=== PATIENT | male | born 1970 | race Caucasian/White ===

== ENCOUNTER 2016-06-26 13:56 | Inpatient (IN) | payer MEDICARE, MEDICAID ==
--- NOTE | 2016-06-26 14:07 | ED Physician Chart ---
Chief Complaint/HPI - Patient Information Date Seen:: 06/26/16 Time Seen:: 14:00 Chief Complaint:: Coffee ground emesis. History of Present Illness:: Pt was brought in by ambulance from custodial because he had 2 episodes of coffee ground emesis reportedly. Pt has h/o cerebral palsy and is essentially nonverbal. H & P are limited because pt is unable to cooperate. Info is primarily from review of transfer documents. Allergies:: NKA Vitals:: see Nurse Note. Historian:: Medical Records (from transferring facility.) Family MD/PCP:: Dr. Goldberg LMP:: N/A Review:: Nurse's Note Reviewed, Transfer documents Reviewed Review of Systems - Review of Systems General/Constitutional: Other (Pt does not cooperate for ROS.) Past Medical History - Past Medical History Past Medical History: HTN, Seizures, Dementia, Other (h/o cerebral palsy with spastic quadraplegia.) Family History: Other (Pt does not cooperate to provide info on FHx.) Social History: Care Facility, Other (Pt does not cooperate to provide info on SHx.) Surgical History: other (Pt does not cooperate to provide info on Surgical Hx.) Psychiatricy History: Dementia Medication: Reviewed Family Medical History - Family Member Mother History Unknown: Yes Physical Exam - Physical Examination General/Constitutional: Awake, Well-developed, well-nourished, Alert, No distress, Non-toxic appearing Other Gen/Cons comments:: Breathes comfortably, responds to voice and tactile stimuli. Head: Atraumatic Eyes: Lids, conjuctiva normal, PERRL, EOMI Skin: Nl inspection, No rash, No skin lesions, No ecchymosis, Well hydrated, No lymphadenopathy ENMT: External ears, nose nl, Nasal exam nl, Oropharynx nl, Tonsils nl Neck: Nontender, Full ROM w/o pain, No JVD, No nuchal rigidity, No mass, No stridor Respiratory: Nl effort/Exclusion, Clear to Auscultation, No Wheeze/Rhonchi/Rales Cardio Vascular: RRR, No murmur, gallop, rubs, NL S1 S2 GI: No tenderness/rebounding/guarding, No organomegaly, No hernia, Normal BS's, Nondistended, No mass/bruits, No McBurney tenderness Other GI comments:: Soft Extremities: No edema Other Neuro/Psych comments:: Alert, spontaneous movements noticed in all 4 extremities. Pt does not cooperate for full neurological exam. Labs/Radiology/EKG Results - Lab Results Results: Laboratory Tests 06/26/16 06/26/16 06/26/16 14:35 14:35 14:35 WBC 20.5 H* RBC 5.99 H Hgb 17.5 H Hct 52.7 H MCV 87.9 MCH 29.2 MCHC Differential 33.2 RDW 12.0 Plt Count 272 MPV 8.9 Band Neutrophils % 5 Neutrophils (Manual) 90 H Lymphocytes 3 L Monocytes 2 Eosinophils 0 Basophils 0 Platelet Estimate ADEQUATE Platelet Morphology NORMAL RBC Morph Micro Appear NORMAL PT 10.7 INR 1.08 PTT (Actin FS) 19.0 L Sodium 138 Potassium 4.6 Chloride 100 Carbon Dioxide 30.8 Anion Gap 11.8 BUN 31 H Creatinine 0.9 Est GFR ( Amer) > 60.0 Est GFR (Non-Af Amer) > 60.0 BUN/Creatinine Ratio 34.4 Glucose 210 H Hemoglobin A1c % Calcium 10.0 Total Bilirubin 0.5 AST 23 ALT 25 Alkaline Phosphatase 116 H Total Protein 8.2 Albumin 4.3 Globulin 3.9 Albumin/Globulin Ratio 1.1 Urine Source Urine Color Urine Clarity Urine pH Ur Specific [place] Urine Protein Urine Glucose (UA) Urine Ketones Urine Blood Urine Nitrate Urine Bilirubin Urine Urobilinogen Ur Leukocyte Esterase Urine RBC Urine WBC Ur Epithelial Cells Urine Bacteria Blood Type Antibody Screen 06/26/16 06/26/16 06/26/16 14:35 14:35 15:15 WBC RBC Hgb Hct MCV MCH MCHC Differential RDW Plt Count MPV Band Neutrophils % Neutrophils (Manual) Lymphocytes Monocytes Eosinophils Basophils Platelet Estimate Platelet Morphology RBC Morph Micro Appear PT INR PTT (Actin FS) Sodium Potassium Chloride Carbon Dioxide Anion Gap BUN Creatinine Est GFR ( Amer) Est GFR (Non-Af Amer) BUN/Creatinine Ratio Glucose Hemoglobin A1c % 5.0 Calcium Total Bilirubin AST ALT Alkaline Phosphatase Total Protein Albumin Globulin Albumin/Globulin Ratio Urine Source CATH Urine Color JASWANT Urine Clarity CLOUDY Urine pH 6.0 Ur Specific [place] 1.030 Urine Protein >300 H Urine Glucose (UA) NEGATIVE Urine Ketones >=80 H Urine Blood NEGATIVE Urine Nitrate NEGATIVE Urine Bilirubin SMALL H Urine Urobilinogen 0.2 Ur Leukocyte Esterase TRACE H Urine RBC 0-2 H Urine WBC 2-5 H Ur Epithelial Cells NONE SEEN Urine Bacteria MANY Blood Type A NEGATIVE Antibody Screen NEGATIVE Lactic acid pending. - Radiology Results Results: PCXR: Based on my interpretation, surgical hardware in spinal region, poor inspiration. Increased markings at R lower lung field. Consider early infiltrative process. Official report is pending. ED Septic Shock - . Is Septic Shock (SBP<90, OR Lactate>4 mmol\L) present?: No Reassessment (Disposition) - Reassessment Reassessment:: 1650 Pt has been repeatedly evaluated. Attempts were made to insert NG tube without success as pt was unable to cooperate. Pt remains hemodynamically stable. No sign of active gastrointestinal bleeding. Remaining labs and chest X- ray just became available. Dr. Sanchez is to be contacted. 170 Case was discussed with Dr. Sanchez with relevant H & P, pertinent lab and radiological findings reviewed. Pt is to be admitted to [facility] under his care. Reassessment Condition:: Improved - Diagnosis Diagnosis:: Transient coffee ground emesis by hx, consider upper gastrointestinal bleeding, stable. Leukocytosis with probable early RLL pneumonia and bacteruria. HTN, stable. Hyperglycemia c/w diabetes mellitus, stable. - Patient Disposition Admitted to:: Med/Surg Admitting Medical Physician:: Erick Sanchez Time:: 17:10 Condition at Disposition:: Stable, Improved
[2016-06-26 14:50] LABS: HEMATOCRIT 52.7 % (39.0-49.0); HEMOGLOBIN 17.5 gm/dL (13.2-17.3); MEAN CELL VOLUME 87.9 fl (80-99); MEAN CORPUSCULAR HEMOGLOBIN 29.2 pg (26.0-30.0); MEAN CORPUSCULAR HGB CONC 33.2 pg (28.0-36.0); MEAN PLATELET VOLUME 8.9 fl; PLATELET COUNT 272 Th/cmm (150-400); RED BLOOD COUNT 5.99 Mil/cmm (4.30-5.70)
[2016-06-26 15:03] LABS: WHITE BLOOD COUNT 20.5 Th/cmm (4.8-10.8)
[2016-06-26 15:09] LABS: ALB/GLOB RATIO 1.1 (1.0-1.8); ALKALINE PHOSPHATASE 116 U/L (34-104); ANION GAP 11.8 (7.0-16.0); BILIRUBIN,TOTAL 0.5 mg/dL (0.3-1.0); BUN - UREA NITROGEN 31 mg/dL (7-25); BUN/CREATININE RATIO 34.4; CARBON DIOXIDE 30.8 mEq/L (21.0-31.0); CHLORIDE 100 mEq/L (98-107); CREATININE - SERUM 0.9 mg/dL (0.7-1.3); GLUCOSE 210 mg/dL (70-105); POTASSIUM SERUM 4.6 mEq/L (3.5-5.1); SGOT 23 U/L (13-39); SGPT/ALT 25 U/L (7-52); SODIUM SERUM 138 mEq/L (136-145)
[2016-06-26 15:17] LABS: BAND NEUTROPHILE 5 % (0-10); BASOPHIL 0 % (0-3); EOSINOPHIL 0 % (0-5); NEUTROPHILS 90 % (40-80); PLATELET ESTIMATE ADEQUATE (NORMAL); PLATELET MORPHOLOGY NORMAL (NORMAL); TOTAL CELLS COUNTED 100
[2016-06-26 15:23] LABS: INR 1.08 (0.5-1.4); PROTHROMBIN TIME (TEST) 10.7 SECONDS (9.5-11.5)
[2016-06-26 15:36] LABS: URINE BILIRUBIN SMALL (NEGATIVE); URINE COLOR AMBER; URINE GLUCOSE (UA) NEGATIVE (NEGATIVE); URINE KETONE >=80 mg/dL (NEGATIVE)
[2016-06-26 15:37] LABS: URINE BLOOD NEGATIVE (NEGATIVE); URINE PROTEIN >300 mg/dL (NEGATIVE); URINE UROBILINOGEN 0.2 E.U./dL (0.2 - 1.0)
[2016-06-26 15:38] LABS: URINE BACTERIA MANY /hpf (NONE SEEN); URINE EPITHELIAL CELLS NONE SEEN /lpf (FEW); URINE RBC 0-2 /hpf (0-5)
[2016-06-26] MEDS ORDERED: cefTRIAXone 1 GM in Sodium Chloride 0.9% 50 ML IV ONE (16:50)
[2016-06-26] MEDS ORDERED: Azithromycin 500 MG in Sodium Chloride 0.9% 250 ML IV ONE (16:50)
[2016-06-26] MEDS ORDERED: Sodium Chloride 0.45% 1,000 ML IV ONE ×2 (16:54→17:41)
[2016-06-26] MEDS ORDERED: Albuterol/Ipratropium Neb 3 ML AERS HHN PRN (18:25)
[2016-06-26] MEDS: Albuterol/Ipratropium Neb 3 ML AERS HHN SCH (19:58)
[2016-06-27 00:09] VITALS: BP 153/78
[2016-06-27] MEDS: Albuterol/Ipratropium Neb 3 ML AERS HHN SCH ×5 (06:58→18:53)
[2016-06-27 07:26] LABS: MEAN CELL VOLUME 87.4 fl (80-99); MEAN CORPUSCULAR HEMOGLOBIN 29.7 pg (26.0-30.0); MEAN PLATELET VOLUME 9.7 fl; PLATELET COUNT 218 Th/cmm (150-400); RED BLOOD COUNT 4.75 Mil/cmm (4.30-5.70); WHITE BLOOD COUNT 18.8 Th/cmm (4.8-10.8)
[2016-06-27 07:36] LABS: INR 1.16 (0.5-1.4); PROTHROMBIN TIME (TEST) 11.6 SECONDS (9.5-11.5)
[2016-06-27 07:43] LABS: HEMATOCRIT 41.5 % (39.0-49.0); HEMOGLOBIN 14.1 gm/dL (13.2-17.3)
[2016-06-27 07:48] LABS: ALB/GLOB RATIO 1.3 (1.0-1.8); ALKALINE PHOSPHATASE 82 U/L (34-104); ANION GAP 6.3 (7.0-16.0); BILIRUBIN,TOTAL 0.5 mg/dL (0.3-1.0); BUN - UREA NITROGEN 26 mg/dL (7-25); BUN/CREATININE RATIO 32.5; CALCIUM SERUM 8.5 mg/dL (8.6-10.3); CARBON DIOXIDE 27.1 mEq/L (21.0-31.0); CHLORIDE 108 mEq/L (98-107); CREATININE - SERUM 0.8 mg/dL (0.7-1.3); GLUCOSE 135 mg/dL (70-105); POTASSIUM SERUM 4.4 mEq/L (3.5-5.1); SGOT 13 U/L (13-39); SGPT/ALT 14 U/L (7-52); SODIUM SERUM 137 mEq/L (136-145)
[2016-06-27] MEDS ORDERED: cefTRIAXone 1 GM in Sodium Chloride 0.9% 50 ML IV SCH (09:00)
[2016-06-27] MEDS ORDERED: Ciprofloxacin 400mg Premix PB 400 MG/200 ML BAG IV SCH (09:30)
[2016-06-27] MEDS: Azithromycin 500 MG in Sodium Chloride 0.9% 250 ML IV SCH (09:37)
[2016-06-27] MEDS: D5-0.45NS 1,000 ML IV SCH (10:00)
[2016-06-27] MEDS ORDERED: Influenza Vaccine 0.5 mL Syr IM ONE (10:22)
[2016-06-27 10:36] LABS: BAND NEUTROPHILE 2 % (0-10); NEUTROPHILS 88 % (40-80); TOTAL CELLS COUNTED 100
[2016-06-27 10:37] LABS: PLATELET ESTIMATE ADEQUATE (NORMAL); PLATELET MORPHOLOGY GIANT PLATELETS SEEN (NORMAL)
--- NOTE | 2016-06-27 11:04 | Diagnostic Imaging Report ---
Portable chest x-ray HISTORY: Leukocytosis, cough No focal pulmonary processes are seen. Allowing for poor inspiration, the overall heart size appears normal. Surgical rods traverse the thoracic spine. Incidentally noted are mildly dilated loops of small bowel as well as an air-filled dilated stomach. IMPRESSION: 1. No acute focal pulmonary processes 2. Dilated stomach and air-filled loops of small bowel. The findings should be correlated clinically.
--- NOTE | 2016-06-27 11:06 | Diagnostic Imaging Report ---
Portable chest x-ray HISTORY: Cough Compared with the prior exam of 06/26/2016, no acute focal pulmonary processes are seen. Again noted is an air-filled dilated stomach along with air-filled dilated loops of bowel. Significance should be correlated clinically. IMPRESSION: 1. No acute focal pulmonary processes 2. Dilated stomach and air-filled loops of bowel. The significance should be correlated clinically.
--- NOTE | 2016-06-27 11:18 | History & Physical Pre-OP ---
CHIEF COMPLAINT: Dark bloody emesis x 1. HISTORY OF PRESENT ILLNESS: A 45-year-old gentleman with history of cerebral palsy, mental retardation, seizure disorder who was in his usual state of health until yesterday afternoon. He apparently had after eating lunch, a 1 episode of bloody emesis, which appeared to be described having "lmumbb-[id number]-vygf material". There is only 1 episode reported by staff where the patient resides. There is no other history such as abdominal pain, fever, chills, diarrhea or blood in the stools. The patient was transferred to the ER where pertinent findings include a white count of 20.5 and H 17/52 and a glucose of 210. He also had a UA, consistent with UTI and x-ray with possible right-sided pneumonia. PAST MEDICAL HISTORY: As noted above and scoliosis. PAST SURGICAL HISTORY: There is a history of spinal surgery with miguel insertion. FAMILY HISTORY: Likely noncontributory. SOCIAL HISTORY: No tobacco, no ETOH. Lives at a local board and care ([facility]). ALLERGIES: NKDA. OUTPATIENT MEDICATIONS: Atenolol 25 half a tab every day, benztropine 0.5 tablets every day and in the a.m., MiraLax 17 grams every day p.r.n. for constipation, potassium chloride 10 mEq every day, Vimpat 100 mg b.i.d. for seizures, Tylenol p.r.n. for fever, pain, Dulcolax 5 mg b.i.d. p.r.n. for constipation, diazepam 2.5 per rectum p.r.n. for seizures and/or anxiety, loratadine 10 mg every day. REVIEW OF SYSTEMS: Unable to be done given patient's condition. PHYSICAL EXAMINATION: VITAL SIGNS: Temperature 98.6, T-max is 99.5, pulse 84, respirations 16, BP 143/94 satting 95-97% on room air. GENERAL: Well-nourished thin mentally disabled male, not in acute distress. CARDIOVASCULAR: Regular rate and rhythm without any murmurs. LUNGS: Decreased at the bases, but overall clear to auscultation bilaterally. ABDOMEN: Soft, supple. There is some tenderness to palpation on the epigastrium, currently there are hypoactive bowel sounds. The patient constantly guarding, but appears to be comfortable. There is no organomegaly. LOWER EXTREMITIES: There is no pedal edema. LABORATORY DATA: White count 20.5, H and H 17/52, platelet count of 272 with 90% neutrophils. INR is 1.08. Chemistry shows a BUN of 31. Glucose 210, alkaline phosphatase 116, otherwise, LFTs within normal limits and UA shows protein positive with some ketones, small bilirubin, trace leukocyte esterase with 2-5 wbc's and many bacteria. Lactic acid level 1.53. DIAGNOSTICS: Chest x-ray shows increased markings in the right lung field per ER physician's interpretation, official results pending. IMPRESSION AND PLAN: 1. Rule out gastrointestinal bleed given episode of coffeeground emesis. 2. Leukocytosis. Differential would include urinary tract infection versus acute gastroenteritis versus possible right lower lobe infiltrate. 3. Urinary tract infection. 4. History of seizure disorder. 5. History of hypertension. 6. History of scoliosis. 7. History of cerebral palsy with mental retardation. PLAN: The patient has been admitted to the medical floor for further management and care. He has been placed on IV fluids and IV PPI. The patient has also been started on IV antibiotics and supportive care such as Zofran p.r.n. A GI eval will also be asked for possible endoscopy. I will continue to monitor CBC on a daily basis and an iron panel, CEA level and occult blood testing will be also done. The patient's meds will be continued as tolerated, although some of his meds will be converted to IV. JOB# [id number] ABDIEL
[2016-06-27] MEDS: Ciprofloxacin 400mg Premix PB 400 MG/200 ML BAG IV SCH (12:36)
--- NOTE | 2016-06-27 22:56 | Admit Criteria Form ---
Admit Criteria Forms - Admit Criteria Diagnosis: GASTROINTESTINAL BLEEDING, UPPER Clinical Indications for Admission to Inpatient Care ( Place 'X' for any and all applicable criteria): Admission is indicated for ANY ONE of the following(1)(2)(3)(4)(5)(6): [x ]I. Active bleeding (eg, fresh voluminous blood in emesis or nasogastric aspirate) [ ]II. Associated conditions requiring hospitalization (eg, perforation, obstruction from ulcer) [ ]III. Inpatient admission required rather than observation care (Also use Gastrointestinal Bleeding, Upper: Observation Care as appropriate) because of ANY ONE of the following: [ ]a) Hemodynamic instability that is severe or persistent [ ]b) Anemia requiring inpatient admission as indicated by ALL of the following: [ ]1) Presence of significant clinical finding indicated by ANY ONE of the following: [ ]A. Tachycardia for age [ ]B. Orthostatic vital sign changes [ ]C. Cognitive impairment [ ]D. Heart failure [ ]E. Chest pain [ ]F. Exertional dyspnea [ ]G. Other findings suggesting inadequate perfusion (eg, peripheral or myocardial ischemia, end organ dysfunction) [ ]2) Initial (eg, emergency department, observation care) treatment with transfusion or volume replacement is judged inappropriate (due to severity of the finding) or has been ineffective [ ]c) Severe pain requiring acute inpatient management [ ]d) High-risk low platelet count [ ]e) IV fluid to replace significant ongoing losses (greater than 3 L/m2 per day) [ ]f) Immediate inpatient surgery [ ]g) Other condition, treatment or monitoring requiring inpatient admission [ ]IV. Severe liver disease (eg, cirrhosis) [ ]V. Significant active comorbid disease [ ]. Anticoagulation therapy [ ]VII. High-risk endoscopic features (arterial bleeding, adherent clot, nonbleeding visible vessel, varices, flat red spots, ulcer size greater than 2 cm, or portal hypertensive gastropathy) [ ]VIII. Previous aortic graft placement or known aortic aneurysm [ ]IX. Coagulopathy [ ]X. Syncope Extended stay beyond goal length of stay may be needed for(1)(2): [ ]a) Emergency surgery [ ]b) Varices [ ]c) Coagulation abnormalities [ ]d) Recurrent, obscure, or persistent bleeding or continued Hemodynamic instability [ ]e) Associated conditions requiring surgery (eg, perforated gastric ulcer, gastric outlet obstruction) [ ]f) Active comorbidities (eg, renal insufficiency, heart failure, pre- existing liver disease) The original [facility] [employer] content created by [facility] [employer] has been revised. The portions of the content which have been revised are identified through the use of italic text or in bold, and [facility] has neither reviewed nor approved the modified material. All other unmodified content is copyright [facility] [employer]. Please see references footnoted in the original [facility] [employer] edition 2016 Admit Criteria Met?: Yes
[2016-06-28] MEDS: Ciprofloxacin 400mg Premix PB 400 MG/200 ML BAG IV SCH ×2 (00:59→21:23)
--- NOTE | 2016-06-28 04:28 | Consultation ---
INPATIENT GI CONSULT REFERRING PHYSICIAN: Dr. Sanchez. REASON FOR CONSULTATION: Coffee ground emesis and upper gastrointestinal bleed. HISTORY OF PRESENT ILLNESS: This is a 45-year-old male with mental retardation, poor historian, came into the hospital because he allegedly had coffee-ground emesis. PAST MEDICAL HISTORY: Scoliosis, mental retardation, cerebral palsy, seizure disorder. PAST SURGICAL HISTORY: Spinal surgery. FAMILY HISTORY: Noncontributory. SOCIAL HISTORY: No tobacco, alcohol or IV drug usage. ALLERGIES: Chocolate. CURRENT MEDICATIONS: Tenormin, azithromycin, Cogentin, ciprofloxacin, Ativan, Zofran and Protonix. REVIEW OF SYSTEMS: Unobtainable. PHYSICAL EXAMINATION: VITAL SIGNS: Temperature 98.9, breathing 17, pulse is 99, blood pressure 130/73, satting 95%. GENERAL: No apparent distress. EYES: Anicteric. Normal conjunctivae. HEENT: Normocephalic, atraumatic. Moist mucous membranes. NECK: Soft, supple. CHEST: Clear. No effort. CARDIOVASCULAR: Regular rate and rhythm. ABDOMEN: Soft, nontender, nondistended. SKIN: Warm, dry. EXTREMITIES: Revealed no cyanosis. LABORATORY DATA: Show white count 18.8, hemoglobin 14.1, platelets of 218. INR is 1.16. LFTs within normal limits. IMPRESSION: A 45-year-old male being admitted with coffee ground emesis. Cause could be Nara-Gallegos tear versus peptic ulcer disease versus esophagitis. ____ also has a UTI, being treated by primary team with antibiotics. I will defer this management to them. PLAN: 1. EGD. 2. Follow H and H. 3. Continue Protonix. Thank you for allowing me to participate. Please call me if you have any questions. JOB# [id number]
[2016-06-28 07:17] LABS: HEMATOCRIT 40.4 % (39.0-49.0); HEMOGLOBIN 13.7 gm/dL (13.2-17.3); MEAN CELL VOLUME 88.7 fl (80-99); MEAN CORPUSCULAR HEMOGLOBIN 30.1 pg (26.0-30.0); MEAN CORPUSCULAR HGB CONC 33.9 pg (28.0-36.0); MEAN PLATELET VOLUME 8.8 fl; PLATELET COUNT 219 Th/cmm (150-400); RED BLOOD COUNT 4.56 Mil/cmm (4.30-5.70)
[2016-06-28] MEDS: Albuterol/Ipratropium Neb 3 ML AERS HHN SCH ×4 (07:26→19:38)
[2016-06-28 07:29] LABS: INR 1.19 (0.5-1.4); PROTHROMBIN TIME (TEST) 11.9 SECONDS (9.5-11.5)
[2016-06-28 07:34] LABS: WHITE BLOOD COUNT 12.6 Th/cmm (4.8-10.8)
[2016-06-28 08:28] LABS: ANION GAP 7.7 (7.0-16.0); BUN - UREA NITROGEN 21 mg/dL (7-25); CARBON DIOXIDE 27.9 mEq/L (21.0-31.0); CHLORIDE 104 mEq/L (98-107); CREATININE - SERUM 0.7 mg/dL (0.7-1.3); GLUCOSE 170 mg/dL (70-105); MAGNESIUM 1.9 mg/dL (1.9-2.7); POTASSIUM SERUM 3.6 mEq/L (3.5-5.1); SODIUM SERUM 136 mEq/L (136-145)
[2016-06-28 09:04] LABS: BAND NEUTROPHILE 2 % (0-10); EOSINOPHIL 5 % (0-5); NEUTROPHILS 84 % (40-80); PLATELET ESTIMATE ADEQUATE (NORMAL); PLATELET MORPHOLOGY NORMAL (NORMAL); TOTAL CELLS COUNTED 100
[2016-06-28] MEDS: Azithromycin 500 MG in Sodium Chloride 0.9% 250 ML IV SCH (09:52)
[2016-06-28] MEDS: D5-0.45NS 1,000 ML IV SCH (10:11)
[2016-06-28] MEDS ORDERED: Lactated Ringer 1,000 ML IV SCH (13:30)
--- NOTE | 2016-06-28 16:57 | History & Physical Pre-OP ---
INPATIENT GASTROINTESTINAL PROCEDURE PROCEDURE: EGD with biopsy. REFERRING PHYSICIAN: Dr. Sanchez. REASON FOR PROCEDURE: Upper GI bleed in the form of coffee-ground emesis. CONSENT: Risks, benefits, alternatives, nature, indication, possible outcomes were discussed. Mentioned bleeding, infection, perforation, , disability, cardiopulmonary distress and arrest, missed lesion and cancers, need for surgery. The patient agreed and provided informed consent. PREOPERATIVE DIAGNOSIS: Upper GI bleeding, coffee ground emesis. POSTOPERATIVE DIAGNOSES: Esophagitis, gastritis. CURRENT MEDICATIONS: Provided by anesthesiologist because of the patient's mental retardation. DETAILS OF PROCEDURE: The patient was placed on left side. Upper gastroscope advanced from mouth to second portion. Scope brought back in stomach. Retroflexion view of fundus, cardia, lesser curvature. Stomach was suctioned out, approximately 1 liter of coffee-ground fluid. Biopsies were taken. Scope was then removed. COMPLICATIONS: None. FINDINGS: 1. GE junction at 32 cm with distal esophagitis that is mild, status post biopsy. 2. Coffee-ground secretions and gastritis, status post biopsy. 3. Normal duodenum. RECOMMENDATIONS: 1. Provide patient with Protonix. 2. Follow H and H. 3. Follow up on biopsies. Thank you for allowing me to participate. Please call me if any questions. JOB# [id number]
[2016-06-29] MEDS: D5-0.45NS 1,000 ML IV SCH (05:20)
[2016-06-29 07:43] LABS: MEAN CELL VOLUME 87.8 fl (80-99); MEAN CORPUSCULAR HEMOGLOBIN 30.2 pg (26.0-30.0); MEAN CORPUSCULAR HGB CONC 34.4 pg (28.0-36.0); MEAN PLATELET VOLUME 8.8 fl; RED BLOOD COUNT 3.59 Mil/cmm (4.30-5.70); RED CELL DISTRIBUTION WIDTH 11.7 % (11.5-20.0); WHITE BLOOD COUNT 12.4 Th/cmm (4.8-10.8)
[2016-06-29 07:55] LABS: HEMATOCRIT 31.5 % (39.0-49.0); HEMOGLOBIN 10.8 gm/dL (13.2-17.3); PLATELET COUNT 167 Th/cmm (150-400)
[2016-06-29 08:01] LABS: BUN - UREA NITROGEN 13 mg/dL (7-25); BUN/CREATININE RATIO 18.6; CALCIUM SERUM 7.7 mg/dL (8.6-10.3); CARBON DIOXIDE 25.4 mEq/L (21.0-31.0); CHLORIDE 106 mEq/L (98-107); CREATININE - SERUM 0.7 mg/dL (0.7-1.3); GLUCOSE 127 mg/dL (70-105); POTASSIUM SERUM 3.4 mEq/L (3.5-5.1); SODIUM SERUM 135 mEq/L (136-145)
[2016-06-29] MEDS: Albuterol/Ipratropium Neb 3 ML AERS HHN SCH ×4 (08:10→20:02)
[2016-06-29 08:27] LABS: BAND NEUTROPHILE 4 % (0-10); EOSINOPHIL 11 % (0-5); NEUTROPHILS 78 % (40-80); TOTAL CELLS COUNTED 100
[2016-06-29 08:28] LABS: PLATELET ESTIMATE ADEQUATE (NORMAL); PLATELET MORPHOLOGY NORMAL (NORMAL)
[2016-06-29] MEDS: KCL 20mEq/100mL Premix 20 MEQ/100 ML PIGGYBACK IV SCH ×2 (10:03→13:30)
--- NOTE | 2016-06-29 12:51 | Diagnostic Imaging Report ---
Abdominal 10 HISTORY: Pain The exam is extremely limited due to large amount of bowel gas. There is incomplete visualization the liver with no obvious focal lesions. There is limited delineation the gallbladder. No obvious intraluminal abnormalities are seen. The common bile duct cannot be delineated. The pancreas is of scattered of bowel gas. The right kidney appears normal. There appears to be mild hydronephrosis involving the left renal collecting system. Etiology uncertain. The spleen is normal in size. No other obvious retroperitoneal or intra-abdominal abnormalities. IMPRESSION: 1. Very limited/suboptimal exam due to considerable bowel gas-see above 2. Suggestion of mild dilatation/hydronephrosis involving the left renal collecting system. Etiology uncertain. If necessary, a CT scan would provide additional assessment
[2016-06-29] MEDS: Ciprofloxacin 400mg Premix PB 400 MG/200 ML BAG IV SCH (14:11)
[2016-06-29] MEDS: Azithromycin 500 MG in Sodium Chloride 0.9% 250 ML IV SCH (15:28)
[2016-06-30 05:47] LABS: HEMATOCRIT 32.3 % (39.0-49.0); HEMOGLOBIN 11.1 gm/dL (13.2-17.3); MEAN CELL VOLUME 88.2 fl (80-99); MEAN CORPUSCULAR HEMOGLOBIN 30.3 pg (26.0-30.0); MEAN CORPUSCULAR HGB CONC 34.4 pg (28.0-36.0); MEAN PLATELET VOLUME 8.5 fl; PLATELET COUNT 174 Th/cmm (150-400); RED BLOOD COUNT 3.67 Mil/cmm (4.30-5.70); RED CELL DISTRIBUTION WIDTH 11.7 % (11.5-20.0)
[2016-06-30] MEDS: Albuterol/Ipratropium Neb 3 ML AERS HHN SCH ×3 (06:41→14:14)
[2016-06-30 06:42] LABS: ANION GAP 10.3 (7.0-16.0); BUN - UREA NITROGEN 9 mg/dL (7-25); CALCIUM SERUM 8.1 mg/dL (8.6-10.3); CARBON DIOXIDE 24.3 mEq/L (21.0-31.0); CHLORIDE 107 mEq/L (98-107); CREATININE - SERUM 0.6 mg/dL (0.7-1.3); GLUCOSE 105 mg/dL (70-105); POTASSIUM SERUM 3.6 mEq/L (3.5-5.1); SODIUM SERUM 138 mEq/L (136-145)
[2016-06-30] MEDS: Ciprofloxacin 400mg Premix PB 400 MG/200 ML BAG IV SCH (08:39)
[2016-06-30 08:42] LABS: BAND NEUTROPHILE 1 % (0-10); EOSINOPHIL 8 % (0-5); NEUTROPHILS 76 % (40-80); TOTAL CELLS COUNTED 100
[2016-06-30 08:43] LABS: PLATELET ESTIMATE ADEQUATE (NORMAL); PLATELET MORPHOLOGY NORMAL (NORMAL)
[2016-06-30] MEDS ORDERED: Mag Sulfate 2gm/50mL Premix 2 GM/50 ML BAG IV ONE (08:55)
[2016-06-30] MEDS: Azithromycin 500 MG in Sodium Chloride 0.9% 250 ML IV SCH (10:24)
--- NOTE | 2016-06-30 14:21 | Pathology Report ---
[id number] Collection date: 06/28/2016 Surgeon: Dr. Stephanie Alston Specimen Description: 1. Duodenum biopsy. 2. Antrum biopsy. 3. Esophagus biopsy. Gross Description Part I: Received in formalin are two roper soft tissue fragments ranging from 0.1 to 0.2 cm in greatest dimension. Totally submitted in one cassette labeled A. Gross Description Part II: Received in formalin is a single roper soft tissue fragment measuring 0.2 cm in greatest dimension. Totally submitted in one cassette labeled B. Gross Description Part III: Received in formalin are two roper soft tissue fragments measuring 0.1 cm in greatest dimension. Totally submitted in one cassette labeled C. Microscopic Description Part I: The histologic sections show benign duodenal mucosa with intact intestinal villi, showing no significant structural abnormalities. Diagnosis Part I: No evidence for celiac disease/sprue. Microscopic Description Part II: The histologic sections show gastric mucosa with chronic inflammation present consisting of lymphocytes and plasma cells. Giemsa stain shows no evidence for Helicobacter pylori. Diagnosis Part II: 1. Chronic gastritis, antrum biopsy. 2. Giemsa stain is negative for Helicobacter pylori. Microscopic Description Part III: The histologic sections show ulcerated esophageal squamous mucosa with acute and chronic inflammation present consisting of neutrophils admixed with lymphocytes and plasma cells. There is also fibrosis and vascular proliferation consistent with granulation tissue. The PAS stain shows no evidence for fungal organisms. The Alcian blue stain shows no significant abnormality. Diagnosis Part III: Esophageal ulceration with acute and chronic inflammation present (esophagus biopsy). [facility]# [id number] [facility]
--- NOTE | 2016-06-30 20:05 | Discharge Summary ---
ADMITTING DIAGNOSES: 1. Hematemesis, rule out upper GI bleed. 2. Leukocytosis. 3. UTI. 4. Hyperglycemia rule out diabetes mellitus. SECONDARY DIAGNOSES: Include history of hypertension, history of scoliosis, history of cerebral palsy/mental retardation, seizure disorder. DISCHARGE DIAGNOSES: 1. Gastritis, esophagitis. 2. Status post upper GI bleed. 3. Leukocytosis, improved. 4. UTI. CONSULTANTS: Dr. Alston, GI. MAJOR PROCEDURES: There was an abdominal ultrasound done on 06/29/2016 showing a very limited suboptimal exam due to considerable bowel gas. There is a suggestion of mild dilatation/hydronephrosis involved in the left renal collecting system and there was an EGD done on 06/28/2016 showing consistency with esophagitis. There was also noticeable gastritis with coffee secretions and normal duodenum. BRIEF HOSPITAL COURSE: This is a 45-year-old gentleman with history of cerebral palsy and seizure disorder who was brought into the ER secondary to 1 episode of bloody emesis which also appeared to have coffee-ground like material. In the ER, his white count was noted to be 20.5 and his H and H was noted to be elevated at 17/52. He also had a UA consistent with UTI. He was admitted to telemetry for further management and care and was placed on IV antibiotics and IV Protonix with improvement of his symptoms. He initially was n.p.o. until he underwent the above-mentioned procedures without any complications. Post EGD he received a full liquid diet and eventually soft pureed diet with no evidence of abdominal pain or nausea or vomiting. His current vital signs are within normal limits and he has been afebrile since admission. His labs have also improved. White count went from 18.8 to 12.0 and his H and H has remained stable. He also has not had any more episodes of nausea, vomiting and there is no evidence of bloody stools. His iron panel was within normal limits as well as his CEA level. DISCHARGE MEDICATIONS: Atenolol 12.5 b.i.d., DuoNeb q.4 p.r.n. for SOB, Cogentin 0.25 every day, Cipro 250 mg b.i.d. x 5 days, diazepam 2.5 per rectum p.r.n. for anxiety, Vimpat 100 mg b.i.d., loratadine 10 mg every day, multivitamins every day, polyethylene glycol 17 grams every day p.r.n. for constipation, potassium chloride 10mEq every day, bisacodyl 10 mg p.o. every day p.r.n. for constipation, Tylenol p.r.n., Protonix 40 mg p.o. every day. CONDITION ON DISCHARGE: Stable. DISPOSITION: The patient will be discharged back to [facility]. [facility]# [id number] MTDD
== END 2016-06-30 15:00 | disposition short-term general hospital (02) | DRG 377 ==
LOC: ER 13:56 → MSI 17:37
PROVIDERS: ADMIT Internal Medicine; ATTEND Internal Medicine
PROC: 0DB68ZX Excision of Stomach, Via Natural or Artificial Opening Endoscopic, Diagnostic (ICD-10-PCS; principal; 2016-06-28)
PROC: 0DB38ZX Excision of Lower Esophagus, Via Natural or Artificial Opening Endoscopic, Diagnostic (ICD-10-PCS; 2016-06-28)
PROC: 0DB98ZX Excision of Duodenum, Via Natural or Artificial Opening Endoscopic, Diagnostic (ICD-10-PCS; 2016-06-28)
DX: K92.2 Gastrointestinal hemorrhage, unspecified (principal); G80.0 Spastic quadriplegic cerebral palsy; F03.90 Unspecified dementia, unspecified severity, without behavioral disturbance, psychotic disturbance, mood disturbance, and anxiety; N39.0 Urinary tract infection, site not specified; M41.9 Scoliosis, unspecified; E11.65 Type 2 diabetes mellitus with hyperglycemia; K29.70 Gastritis, unspecified, without bleeding; K20.9 Esophagitis, unspecified; I10 Essential (primary) hypertension; D72.829 Elevated white blood cell count, unspecified; G40.909 Epilepsy, unspecified, not intractable, without status epilepticus; G80.9 Cerebral palsy, unspecified; F79 Unspecified intellectual disabilities; Z98.890 Other specified postprocedural states; Z91.018 Allergy to other foods
CPT/HCPCS: 36415-UA; 71010-TC; 76700-TC; 80048-TC; 80053-TC; 81001-TC; 82378-90; 82948-90; 83036-90; 83540-90; 83550-90; 83605; 83735-TC; 85007-TC; 85027-TC; 85610-TC; 86850-TC; 86900-TC; 86901-TC; 88305-90; 88312-90; 88313-90; 94760; 96375; C9113; J0456; J0696; J0744; J2405; J2704; J3475; J3480; J3490; J7030; Z7610

== ENCOUNTER 2017-11-03 07:45 | Inpatient (IN) | payer MEDICARE, MEDICAID ==
[2017-11-03] MEDS ORDERED: Sodium Chloride 0.9% 1,000 ML IV ONE (08:14)
[2017-11-03 08:45] LABS: HEMATOCRIT 47.2 % (41.0-60); HEMOGLOBIN 16.2 gm/dL (12-16); MEAN CELL VOLUME 88.8 fl (80-99); MEAN CORPUSCULAR HEMOGLOBIN 30.4 pg (26.0-30.0); MEAN CORPUSCULAR HGB CONC 34.2 pg (28.0-36.0); MEAN PLATELET VOLUME 9.1 fl; PLATELET COUNT 162 Th/cmm (150-400); RED BLOOD COUNT 5.32 Mil/cmm (4.30-5.70); RED CELL DISTRIBUTION WIDTH 11.9 % (11.5-20.0)
[2017-11-03 08:47] LABS: % EOSINOPHILS 0.1 % (0.0-5.0); % LYMPHOCYTES 2.9 % (20.0-50.0); % MONOCYTES 6.8 % (2.0-10.0); % NEUTROPHILS 90.2 % (40.0-80.0); LYMPHOCYTE ABSOLUTE 0.4 Th/cmm (1.5-3.0); NEUTROPHILE ABSOLUTE 12.3 Th/cmm (1.8-8.0); WHITE BLOOD COUNT 13.6 Th/cmm (4.8-10.8)
[2017-11-03 08:48] LABS: MONOCYTE ABSOLUTE 0.9 Th/cmm (0.3-1.0)
[2017-11-03 09:04] LABS: INR 1.25 (0.5-1.4); PROTHROMBIN TIME (TEST) 13.2 SECONDS (9.5-11.5)
[2017-11-03 09:33] LABS: ALB/GLOB RATIO 1.3 (1.0-1.8); ALBUMIN 3.8 gm/dL (4.2-5.5); ALKALINE PHOSPHATASE 99 U/L (34-104); ANION GAP 14.7 (7.0-16.0); BILIRUBIN,TOTAL 0.6 mg/dL (0.3-1.0); BUN - UREA NITROGEN 32 mg/dL (7-25); CALCIUM SERUM 8.8 mg/dL (8.6-10.3); CARBON DIOXIDE 24.2 mEq/L (21.0-31.0); CHLORIDE 105 mEq/L (98-107); CHOLESTEROL 142 mg/dL (<200); CREATININE - SERUM 0.9 mg/dL (0.7-1.3); CREATININE KINASE 29 U/L (30-223); GFR AFRICAN-AMERICAN > 60.0 ml/min (>90); GFR NON AFRICAN-AMERICAN > 60.0 ml/min; GLUCOSE 188 mg/dL (70-105); HDL -HIGH DENSITY LIPOPROTEIN 49 mg/dL (23-92); POTASSIUM SERUM 3.9 mEq/L (3.5-5.1); SGOT 15 U/L (13-39); SGPT/ALT 18 U/L (7-52); SODIUM SERUM 140 mEq/L (136-145); TOTAL PROTEIN,SERUM 6.7 gm/dL (6.0-8.3); TRIGLYCERIDES 60 mg/dL (<150)
[2017-11-03 09:34] LABS: AMYLASE SERUM 31 U/L (29-103); LIPASE 22 U/L (11-82)
[2017-11-03 09:43] LABS: URINE MICROSCOPIC INDICATED? YES; URINE SOURCE CLEAN C
[2017-11-03 09:49] LABS: URINE BILIRUBIN NEGATIVE (NEGATIVE); URINE BLOOD MODERATE (NEGATIVE); URINE GLUCOSE (UA) NEGATIVE (NEGATIVE); URINE KETONE 40 mg/dL (NEGATIVE); URINE LEUKOCYTE ESTERASE MODERATE (NEGATIVE); URINE NITRATE NEGATIVE (NEGATIVE); URINE PROTEIN 100 mg/dL (NEGATIVE); URINE UROBILINOGEN 0.2 E.U./dL (0.2 - 1.0)
[2017-11-03 09:50] LABS: URINE CLARITY CLOUDY (CLEAR); URINE COLOR YELLOW
[2017-11-03 09:57] LABS: URINE BACTERIA MODERATE /hpf (NONE SEEN); URINE EPITHELIAL CELLS FEW /lpf (FEW); URINE WBC 25-50 /hpf (0-5)
[2017-11-03] MEDS ORDERED: cefTRIAXone 1 GM in Sodium Chloride 0.9% 50 ML IV ONE (10:49)
--- NOTE | 2017-11-03 10:50 | ED Physician Chart ---
ED Chief Complaint/HPI - Patient Information Date Seen:: 11/03/17 Time Seen:: 08:20 Chief Complaint:: Abdominal Pain History of Present Illness:: onset x one day of intermittent, diffuse, crampy abdominal pain, N/V/D x 15; no report of trauma, H/As, S/T, neck pain, C/P, SOB, cough, A/C, fever, chills, or urinary s/s Allergies:: Allergies Allergy/AdvReac Type Severity Reaction Status Date / Time chocolate flavor Allergy Verified 06/26/16 14:09 Vitals:: Vital Signs - 8 hr 11/03/17 11/03/17 11/03/17 08:22 09:00 10:00 Temp 100 F 97.2 F 97.6 F HR 112 100 96 RR 16 24 22 BP 120/77 143/87 132/83 O2 Sat % 100 95 95 Historian:: Patient Review:: Nurse's Note Reviewed ED Review of Systems - Review of Systems General/Constitutional: No fever, No chills, No weight loss, No weakness, No diaphoresis, No edema, No loss of appetite Skin: No skin lesions, No rash, No bruising Head: No headache, No light-headedness Eyes: No loss of vision, No pain, No diplopia ENT: No earache, No nasal drainage, No sore throat, No tinnitus Neck: No neck pain, No swelling, No thyromegaly, No stiffness, No mass noted Cardio Vascular: No chest pain, No palpitations, No PND, No orthopnea, No edema Pulmonary: No SOB, No cough, No sputum, No wheezing GI: Nausea, Vomiting, Diarrhea, Pain, No melena, No hematochezia, No constipation, No hematemesis G/U: No dysuria, No frequency, No hematuria, No nacturia Musculoskeletal: No bone or joint pain, No back pain, No muscle pain Endocrine: No polyuria, No polydipsia Psychiatric: No prior psych history, No depression, No anxiety, No suicidal ideation, No homicidal ideation, No auditory hallucination, No visual hallucination Hematopoietic: No bruising, No lymphadenopathy Allergic/Immuno: No urticaria, No angioedema Neurological: No syncope, No focal symptoms, No weakness, No paresthesia, No headache, No seizure, No dizziness, Confusion, No vertigo ED Past Medical History - Past Medical History Obtainable: Yes Past Medical History: Dementia Family History: HTN Social History: Non Smoker, No Alcohol, No Drug Use, Single, Care Facility Surgical History: None Psychiatricy History: Dementia Medication: Reviewed Family Medical History - Family Member Mother History Unknown: Yes ED Physical Exam - Physical Examination General/Constitutional: Awake, Well-developed, well-nourished, Alert, No distress, GCS 15, Non-toxic appearing, Ambulatory Head: Atraumatic Eyes: Lids, conjuctiva normal, PERRL, EOMI Skin: Nl inspection, No rash, No skin lesions, No ecchymosis, Well hydrated, No lymphadenopathy ENMT: External ears, nose nl, TM canals nl, Nasal exam nl, Lips, teeth, gums nl , Oropharynx nl, Tonsils nl Neck: Nontender, Full ROM w/o pain, No JVD, No nuchal rigidity, No bruit, No mass, No stridor Respiratory: Nl effort/Exclusion, Clear to Auscultation, No Wheeze/Rhonchi/Rales Cardio Vascular: RRR, No murmur, gallop, rubs, NL S1 S2, Carotid/Femoral/Distal pulses equal bilaterally GI: No tenderness/rebounding/guarding, No organomegaly, No hernia, Normal BS's, Nondistended, No mass/bruits, No McBurney tenderness, Rectum exam nl : No CVA tenderness Extremities: No tenderness or effusion, Full ROM, normal strength in all extremities, No edema, Normal digits & nails Neuro/Psych: Alert/oriented, DTR's symmetric, Normal sensory exam, Normal motor strength, Judgement/insight normal, Mood normal, Normal gait, No focal deficits Misc: Normal back, No paraspinal tenderness ED Labs/Radiology/EKG Results - Lab Results Results: Laboratory Tests 11/03/17 11/03/17 11/03/17 08:35 08:35 08:35 WBC 13.6 H RBC 5.32 Hgb 16.2 Hct 47.2 MCV 88.8 MCH 30.4 H MCHC Differential 34.2 RDW 11.9 Plt Count 162 MPV 9.1 Neutrophils % 90.2 H Lymphocytes % 2.9 L Monocytes % 6.8 Eosinophils % 0.1 Basophils % 0.0 PT 13.2 H INR 1.25 Sodium 140 Potassium 3.9 Chloride 105 Carbon Dioxide 24.2 Anion Gap 14.7 BUN 32 H Creatinine 0.9 Est GFR ( Amer) > 60.0 Est GFR (Non-Af Amer) > 60.0 BUN/Creatinine Ratio 35.6 Glucose 188 H Whole Bld Lactic Acid Calcium 8.8 Total Bilirubin 0.6 AST 15 ALT 18 Alkaline Phosphatase 99 Creatine Kinase 29 L Troponin I B-Natriuretic Peptide Total Protein 6.7 Albumin 3.8 L Globulin 2.9 Albumin/Globulin Ratio 1.3 Triglycerides 60 Cholesterol 142 LDL Cholesterol Direct 82 HDL Cholesterol 49 Amylase Lipase Urine Source Urine Color Urine Clarity Urine pH Ur Specific [place] Urine Protein Urine Glucose (UA) Urine Ketones Urine Blood Urine Nitrate Urine Bilirubin Urine Urobilinogen Ur Leukocyte Esterase Urine RBC Urine WBC Ur Epithelial Cells Urine Bacteria 11/03/17 11/03/17 11/03/17 08:35 08:35 08:35 WBC RBC Hgb Hct MCV MCH MCHC Differential RDW Plt Count MPV Neutrophils % Lymphocytes % Monocytes % Eosinophils % Basophils % PT INR Sodium Potassium Chloride Carbon Dioxide Anion Gap BUN Creatinine Est GFR ( Amer) Est GFR (Non-Af Amer) BUN/Creatinine Ratio Glucose Whole Bld Lactic Acid Calcium Total Bilirubin AST ALT Alkaline Phosphatase Creatine Kinase Troponin I < 0.01 L B-Natriuretic Peptide 79.4 Total Protein Albumin Globulin Albumin/Globulin Ratio Triglycerides Cholesterol LDL Cholesterol Direct HDL Cholesterol Amylase 31 Lipase 22 Urine Source Urine Color Urine Clarity Urine pH Ur Specific [place] Urine Protein Urine Glucose (UA) Urine Ketones Urine Blood Urine Nitrate Urine Bilirubin Urine Urobilinogen Ur Leukocyte Esterase Urine RBC Urine WBC Ur Epithelial Cells Urine Bacteria 11/03/17 11/03/17 08:35 09:23 WBC RBC Hgb Hct MCV MCH MCHC Differential RDW Plt Count MPV Neutrophils % Lymphocytes % Monocytes % Eosinophils % Basophils % PT INR Sodium Potassium Chloride Carbon Dioxide Anion Gap BUN Creatinine Est GFR ( Amer) Est GFR (Non-Af Amer) BUN/Creatinine Ratio Glucose Whole Bld Lactic Acid 2.01 H* Calcium Total Bilirubin AST ALT Alkaline Phosphatase Creatine Kinase Troponin I B-Natriuretic Peptide Total Protein Albumin Globulin Albumin/Globulin Ratio Triglycerides Cholesterol LDL Cholesterol Direct HDL Cholesterol Amylase Lipase Urine Source CLEAN C Urine Color YELLOW Urine Clarity CLOUDY Urine pH 6.0 Ur Specific [place] >= 1.030 Urine Protein 100 H Urine Glucose (UA) NEGATIVE Urine Ketones 40 H Urine Blood MODERATE H Urine Nitrate NEGATIVE Urine Bilirubin NEGATIVE Urine Urobilinogen 0.2 Ur Leukocyte Esterase MODERATE H Urine RBC 5-10 H Urine WBC 25-50 H Ur Epithelial Cells FEW Urine Bacteria MODERATE H Comments:: U/A: + Pyuria; + Blood; BUN: 32; WBC: 13.6 - Radiology Results Comments:: Distended Urinary Bladder; Hydronephrosis; L>R; no stones - EKG Interpretations EKG Time:: 08:40 Rate & Rhythm: 106; ST Comments:: non-specific st-t changes ED Septic Shock - . Is Septic Shock (SBP<90, OR Lactate>4 mmol\L) present?: No - <6hrs of presentation: Vital Signs: Vital Signs - 8 hr 11/03/17 11/03/17 11/03/17 08:22 09:00 10:00 Temp 100 F 97.2 F 97.6 F HR 112 100 96 RR 16 24 22 BP 120/77 143/87 132/83 O2 Sat % 100 95 95 ED Reassessment (Disposition) - Reassessment Reassessment Condition:: Improved - Diagnosis Diagnosis:: Abdominal Pain; N/V/D; AGE; Gastroenteritis; Dehydration; Leukocytosis; UTI; Hematuria; Hydronephrosis - Aftercare/Follow up Instructions Aftercare/Follow-Up Instructions:: Counseled pt regarding lab results/diagnosis & need follow up, Counseled pt & family regarding lab results/diagnosis & need follow up - Patient Disposition Discharge/Transfer:: Acute Care w/in this hosp Accepting Physician:: Dr. Sanchez Time Called:: 1000 Time Responded:: 10:00 Admitted to:: Telemetry Spoke to:: Dr. Sanchez Admitting Medical Physician:: Dr. Sanchez Condition at Disposition:: Stable, Improved
--- NOTE | 2017-11-03 12:35 | Diagnostic Imaging Report ---
CT abdomen and pelvis without intravenous contrast Indication: Abdominal pain Comparison: Abdominal ultrasound on 06/29/2016 Technique: Axial images were obtained from the lung bases to the bilateral proximal femurs without IV contrast. Coronal reconstructions were made. total DLP: [id number], [id number] FINDINGS: Left basal infiltrates are noted. Exam is limited due to body habitus and positioning. Multilevel spinal scoliosis fixation hardware the thoracic and lumbar spine also causes streak artifact and severely limits the exam. Evaluation of solid organs also limited due to lack of IV contrast. No obvious focal hepatic or splenic lesions. The pancreas is poorly visualized on this exam. No focal adrenal lesions. There is mild bilateral hydronephrosis. Distended urinary bladder is noted. Small fat-containing left inguinal hernia is noted. Copious stool is noted with degenerative gaseous filled loops of bowel. Distended stomach is also noted. The appendix is not wall visualized. No free air free fluid. Severe spinal scoliosis is noted with degenerative changes. IMPRESSION: Limited exam due to body habitus and patient severe spinal scoliosis and multilevel scoliosis fixation hardware. Copious stool is noted with generalized gas-filled loops of bowel and air and fluid-filled stomach. Findings may be due to chronic constipation and ileus. Clinical correlation recommended. Distended urinary bladder. There is mild bilateral hydronephrosis , left greater than right, which may be secondary to patient's distended urinary bladder. No radiopaque stones identified. Left basal infiltrates.
[2017-11-03] MEDS ORDERED: Morphine Sulfate 4 mg/mL 1mL Syr IV PRN (13:18)
[2017-11-03 20:22] LABS: A1C % 5.5 % (4.0-6.0)
[2017-11-04] MEDS: Sodium Chloride 0.9% 1,000 ML IV SCH ×3 (00:34→23:00)
[2017-11-04 06:52] LABS: ALB/GLOB RATIO 1.3 (1.0-1.8); ALBUMIN 3.2 gm/dL (4.2-5.5); ALKALINE PHOSPHATASE 77 U/L (34-104); ANION GAP 10.1 (7.0-16.0); BILIRUBIN,TOTAL 0.4 mg/dL (0.3-1.0); BUN - UREA NITROGEN 23 mg/dL (7-25); CALCIUM SERUM 8.2 mg/dL (8.6-10.3); CARBON DIOXIDE 24.5 mEq/L (21.0-31.0); CHLORIDE 110 mEq/L (98-107); CREATININE - SERUM 0.8 mg/dL (0.7-1.3); GFR AFRICAN-AMERICAN > 60.0 ml/min (>90); GFR NON AFRICAN-AMERICAN > 60.0 ml/min; POTASSIUM SERUM 3.6 mEq/L (3.5-5.1); SGOT 16 U/L (13-39); SGPT/ALT 17 U/L (7-52); SODIUM SERUM 141 mEq/L (136-145); TOTAL PROTEIN,SERUM 5.7 gm/dL (6.0-8.3)
[2017-11-04 06:58] LABS: % BASOPHILS 0.3 % (0.0-2.0); % EOSINOPHILS 0.1 % (0.0-5.0); % LYMPHOCYTES 8.8 % (20.0-50.0); % MONOCYTES 6.2 % (2.0-10.0); % NEUTROPHILS 84.6 % (40.0-80.0); HEMOGLOBIN 14.2 gm/dL (12-16); LYMPHOCYTE ABSOLUTE 0.8 Th/cmm (1.5-3.0); MEAN CELL VOLUME 89.7 fl (80-99); MEAN CORPUSCULAR HEMOGLOBIN 30.7 pg (26.0-30.0); MEAN CORPUSCULAR HGB CONC 34.2 pg (28.0-36.0); MEAN PLATELET VOLUME 8.8 fl; MONOCYTE ABSOLUTE 0.6 Th/cmm (0.3-1.0); NEUTROPHILE ABSOLUTE 7.6 Th/cmm (1.8-8.0); PLATELET COUNT 163 Th/cmm (150-400); RED BLOOD COUNT 4.61 Mil/cmm (4.30-5.70); RED CELL DISTRIBUTION WIDTH 12.2 % (11.5-20.0)
[2017-11-04 07:07] LABS: HEMATOCRIT 41.3 % (41.0-60)
[2017-11-04 07:30] LABS: GLUCOSE 113 mg/dL (70-105)
[2017-11-04] MEDS ORDERED: Atenolol 100mg Tab PO SCH (13:15)
[2017-11-04] MEDS ORDERED: ATENOLOL 12.5 MG PO SCH (13:30)
[2017-11-04] MEDS ORDERED: Fleet Enema 135 mL RC PRN (20:03)
[2017-11-04] MEDS ORDERED: DIAZEPAM 2.5 MG RC SCH (20:15)
[2017-11-04] MEDS ORDERED: Pantoprazole 40 mg EC Tab PO SCH ×2 (20:15→22:36)
[2017-11-04] MEDS ORDERED: Non-Formulary Item 1 EA (Lacosamide 100 MG) PO SCH (20:15)
[2017-11-04] MEDS: Multivitamin w/ Minerals Tab PO SCH (22:53)
[2017-11-04] MEDS: POLYETHYLENE GLYCOL 3350 17 GM PACK PO SCH (23:01)
[2017-11-05] MEDS: Sodium Chloride 0.9% 1,000 ML IV SCH ×2 (05:46→16:41)
[2017-11-05 07:07] LABS: % BASOPHILS 0.4 % (0.0-2.0); % EOSINOPHILS 0.3 % (0.0-5.0); % LYMPHOCYTES 13.3 % (20.0-50.0); % MONOCYTES 7.4 % (2.0-10.0); % NEUTROPHILS 78.6 % (40.0-80.0); HEMATOCRIT 38.9 % (41.0-60); HEMOGLOBIN 13.3 gm/dL (12-16); LYMPHOCYTE ABSOLUTE 0.9 Th/cmm (1.5-3.0); MEAN CELL VOLUME 89.7 fl (80-99); MEAN CORPUSCULAR HEMOGLOBIN 30.6 pg (26.0-30.0); MEAN CORPUSCULAR HGB CONC 34.1 pg (28.0-36.0); MEAN PLATELET VOLUME 8.7 fl; MONOCYTE ABSOLUTE 0.5 Th/cmm (0.3-1.0); NEUTROPHILE ABSOLUTE 5.6 Th/cmm (1.8-8.0); PLATELET COUNT 164 Th/cmm (150-400); RED BLOOD COUNT 4.34 Mil/cmm (4.30-5.70); RED CELL DISTRIBUTION WIDTH 11.8 % (11.5-20.0)
[2017-11-05 07:38] LABS: ANION GAP 10.5 (7.0-16.0); BUN - UREA NITROGEN 16 mg/dL (7-25); CALCIUM SERUM 7.8 mg/dL (8.6-10.3); CARBON DIOXIDE 20.9 mEq/L (21.0-31.0); CHLORIDE 112 mEq/L (98-107); CREATININE - SERUM 0.6 mg/dL (0.7-1.3); GFR AFRICAN-AMERICAN > 60.0 ml/min (>90); GFR NON AFRICAN-AMERICAN > 60.0 ml/min; GLUCOSE 94 mg/dL (70-105); MAGNESIUM 1.9 mg/dL (1.9-2.7); POTASSIUM SERUM 3.4 mEq/L (3.5-5.1); SODIUM SERUM 140 mEq/L (136-145)
[2017-11-05] MEDS ORDERED: ATENOLOL 12.5 MG PO SCH (09:00)
[2017-11-05] MEDS: Multivitamin w/ Minerals Tab PO SCH (09:09)
[2017-11-05] MEDS: POLYETHYLENE GLYCOL 3350 17 GM PACK PO SCH (09:10)
[2017-11-05] MEDS: Pantoprazole 40 mg/Packet PO SCH (09:10)
--- NOTE | 2017-11-05 09:21 | Diagnostic Imaging Report ---
CHEST X-RAY: AP view INDICATION: Shortness of breath, leukocytosis COMPARISON: 06/27/2016 FINDINGS: Patient is rotated. Mild congestive changes are seen with mild increased left basal lung markings. Mild cardiomegaly is noted. IMPRESSION: Mild congestive changes with left basal atelectasis versus focal infiltrate. Mild cardiomegaly.
[2017-11-05] MEDS ORDERED: Potassium Chloride 20 mEq ER Tab PO ONE (12:43)
[2017-11-06] MEDS: Sodium Chloride 0.9% 1,000 ML IV SCH ×2 (04:01→17:15)
[2017-11-06 06:45] LABS: ANION GAP 8.8 (7.0-16.0); BUN - UREA NITROGEN 10 mg/dL (7-25); CALCIUM SERUM 7.7 mg/dL (8.6-10.3); CARBON DIOXIDE 22.4 mEq/L (21.0-31.0); CHLORIDE 111 mEq/L (98-107); CREATININE - SERUM 0.6 mg/dL (0.7-1.3); GFR AFRICAN-AMERICAN > 60.0 ml/min (>90); GFR NON AFRICAN-AMERICAN > 60.0 ml/min; GLUCOSE 84 mg/dL (70-105); MAGNESIUM 1.8 mg/dL (1.9-2.7); POTASSIUM SERUM 3.2 mEq/L (3.5-5.1); SODIUM SERUM 139 mEq/L (136-145)
[2017-11-06 07:14] LABS: % BASOPHILS 0.4 % (0.0-2.0); % EOSINOPHILS 1.4 % (0.0-5.0); % LYMPHOCYTES 22.1 % (20.0-50.0); % MONOCYTES 9.7 % (2.0-10.0); % NEUTROPHILS 66.4 % (40.0-80.0); EOSINOPHILE ABSOLUTE 0.1 Th/cmm (0.1-0.4); HEMATOCRIT 36.8 % (41.0-60); HEMOGLOBIN 12.6 gm/dL (12-16); LYMPHOCYTE ABSOLUTE 1.1 Th/cmm (1.5-3.0); MEAN CELL VOLUME 89.4 fl (80-99); MEAN CORPUSCULAR HEMOGLOBIN 30.6 pg (26.0-30.0); MEAN CORPUSCULAR HGB CONC 34.2 pg (28.0-36.0); MEAN PLATELET VOLUME 8.8 fl; MONOCYTE ABSOLUTE 0.5 Th/cmm (0.3-1.0); NEUTROPHILE ABSOLUTE 3.4 Th/cmm (1.8-8.0); PLATELET COUNT 161 Th/cmm (150-400); RED BLOOD COUNT 4.12 Mil/cmm (4.30-5.70); RED CELL DISTRIBUTION WIDTH 11.6 % (11.5-20.0); WHITE BLOOD COUNT 5.1 Th/cmm (4.8-10.8)
[2017-11-06] MEDS: Pantoprazole 40 mg/Packet PO SCH (09:02)
[2017-11-06] MEDS: Multivitamin w/ Minerals Tab PO SCH (09:03)
[2017-11-06] MEDS: POLYETHYLENE GLYCOL 3350 17 GM PACK PO SCH (09:03)
--- NOTE | 2017-11-06 09:21 | Diagnostic Imaging Report ---
KUB abdominal film (portable) HISTORY: Pain There is a nonspecific gas pattern of nondilated bowel. No free intraperitoneal air. There is a severe scoliosis. [place] rods noted. IMPRESSION: 1. Nonspecific bowel gas pattern 2. Severe scoliosis with surgical changes
[2017-11-06] MEDS ORDERED: Probiotic Screen MC PRN (10:29)
[2017-11-06] MEDS ORDERED: Mag Sulfate 2gm/50mL Premix 2 GM/50 ML BAG IV ONE (10:32)
[2017-11-06] MEDS: KCL 20mEq/100mL Premix 20 MEQ/100 ML PIGGYBACK IV SCH ×2 (15:02→17:13)
[2017-11-06] MEDS ORDERED: KCL 20mEq/100mL Premix 20 MEQ/100 ML PIGGYBACK IV ONE (16:48)
[2017-11-06] MEDS: Lactobacillus Rhamnosus GG 15 Billion CFU CAP.SPRINK PO SCH (17:15)
[2017-11-07 06:41] LABS: % BASOPHILS 0.4 % (0.0-2.0); % EOSINOPHILS 1.1 % (0.0-5.0); % LYMPHOCYTES 17.8 % (20.0-50.0); % MONOCYTES 8.9 % (2.0-10.0); % NEUTROPHILS 71.8 % (40.0-80.0); EOSINOPHILE ABSOLUTE 0.1 Th/cmm (0.1-0.4); HEMATOCRIT 38.4 % (41.0-60); HEMOGLOBIN 13.1 gm/dL (12-16); LYMPHOCYTE ABSOLUTE 1.1 Th/cmm (1.5-3.0); MEAN CELL VOLUME 89.5 fl (80-99); MEAN CORPUSCULAR HEMOGLOBIN 30.5 pg (26.0-30.0); MEAN CORPUSCULAR HGB CONC 34.1 pg (28.0-36.0); MEAN PLATELET VOLUME 8.4 fl; MONOCYTE ABSOLUTE 0.5 Th/cmm (0.3-1.0); NEUTROPHILE ABSOLUTE 4.2 Th/cmm (1.8-8.0); PLATELET COUNT 197 Th/cmm (150-400); RED CELL DISTRIBUTION WIDTH 11.7 % (11.5-20.0); WHITE BLOOD COUNT 5.9 Th/cmm (4.8-10.8)
[2017-11-07 07:07] LABS: ANION GAP 9.7 (7.0-16.0); BUN - UREA NITROGEN 14 mg/dL (7-25); CALCIUM SERUM 7.9 mg/dL (8.6-10.3); CARBON DIOXIDE 23.6 mEq/L (21.0-31.0); CHLORIDE 109 mEq/L (98-107); CREATININE - SERUM 0.7 mg/dL (0.7-1.3); GFR AFRICAN-AMERICAN > 60.0 ml/min (>90); GFR NON AFRICAN-AMERICAN > 60.0 ml/min; GLUCOSE 102 mg/dL (70-105); MAGNESIUM 2.1 mg/dL (1.9-2.7); POTASSIUM SERUM 3.3 mEq/L (3.5-5.1); SODIUM SERUM 139 mEq/L (136-145)
--- NOTE | 2017-11-07 07:52 | Diagnostic Imaging Report ---
CHEST X-RAY: AP view INDICATION: pain COMPARISON: 11/05/2016 FINDINGS: There is improved aeration of the left lung base. Slight increase bibasal lung markings are noted. No focal consolidation or effusions. Heart size is normal. Gas distended loops of bowel of the upper abdomen are noted. Postsurgical changes of the spine are again noted. IMPRESSION: Slight increase bibasal lung markings. Findings favor atelectatic changes. No focal consolidation identified. Improvement aeration of the left lung base also noted.
[2017-11-07] MEDS: POLYETHYLENE GLYCOL 3350 17 GM PACK PO SCH (08:19)
[2017-11-07] MEDS: Lactobacillus Rhamnosus GG 15 Billion CFU CAP.SPRINK PO SCH (08:21)
[2017-11-07] MEDS: Pantoprazole 40 mg/Packet PO SCH (08:21)
[2017-11-07] MEDS: Multivitamin w/ Minerals Tab PO SCH (08:21)
[2017-11-07] MEDS: KCL 20mEq/100mL Premix 20 MEQ/100 ML PIGGYBACK IV SCH ×2 (10:18→12:53)
[2017-11-07] MEDS: Albuterol/Ipratropium Neb 3 ML AERS HHN SCH ×3 (10:45→19:25)
[2017-11-08] MEDS: Albuterol/Ipratropium Neb 3 ML AERS HHN SCH ×2 (07:27→10:38)
[2017-11-08] MEDS: Multivitamin w/ Minerals Tab PO SCH (08:26)
[2017-11-08] MEDS: Pantoprazole 40 mg/Packet PO SCH (08:28)
[2017-11-08] MEDS: Lactobacillus Rhamnosus GG 15 Billion CFU CAP.SPRINK PO SCH (08:28)
[2017-11-08] MEDS: POLYETHYLENE GLYCOL 3350 17 GM PACK PO SCH (08:33)
[2017-11-08] MEDS ORDERED: Potassium Chloride 20 mEq ER Tab PO ONE (12:00)
--- NOTE | 2017-11-08 17:42 | Discharge Summary ---
DATE OF DISCHARGE: 11/08/2017 INITIAL DIAGNOSES: 1. Abdominal pain, likely secondary to ileus/constipation 2. Acute on chronic constipation. 3. Urinary tract infection. 4. Left basilar atelectasis versus pneumonia. 5. Mild bilateral hydronephrosis. SECONDARY DIAGNOSES: Include history of cerebral palsy/mental retardation, history of spastic quadriplegia, history of dementia, history of constipation, essential hypertension, history of severe spinal scoliosis. DISCHARGE DIAGNOSES: 1. Abdominal pain secondary to ileus and constipation - resolved. 2. Bibasilar infiltrates/atelectasis -- clinically improved. 3. Urinary tract infection with strep group B with multiple antibiotic positive sensitivities. 4. Hypokalemia-repleted. CONSULTANTS: There were no consultants used during this admission. MAJOR PROCEDURES: Abdominal and pelvis CT on 11/03/2017 showed a limited exam due to body habitus and patient's severe spinal scoliosis and multilevel scoliosis fixation hardware. There was copious stool noted with generalized gas filled loops of bowel and air as well as fluid-filled stomach. Findings may be due to chronic constipation and ileus. There is also distended urinary bladder. There was also mild bilateral hydronephrosis, left greater than right, which may be secondary to patient's distended left basilar infiltrate. BRIEF HOSPITAL COURSE: The patient is a 47-year-old gentleman who resides at a local [facility] with history of cerebral palsy, spastic quadriplegia, dementia, chronic constipation, who presented to the ED with a 1-2 day history of abdominal pain and mild distention. The patient apparently also had not had any bowel movements at the facility where he resides. He came into the ED where pertinent findings included a white count of 13.[address] of the abdomen showing the above-mentioned diagnostics. He was admitted to the medical floor, placed on IV fluids and was given stool softeners, laxatives, and Fleet enema with improvement of his symptoms by hospital day #2. The patient also was noted to have congestion on his lung exam. Therefore, x-ray was done on 11/05/2017 showing mild congestive changes with left basal atelectasis versus focal infiltrate. He was also noted to have a UA which was consistent with UTI on admission. This was covered with Rocephin and he was placed on pulmonary supportive care with frequent suctioning by RT. His clinical picture remained stable throughout his hospital stay and his congestion did improve with the pulmonary toilet. His UA C/S resulted in strep group B sensitive to Rocephin and Cipro. He has remained afebrile and has had regular bowel movements since hospital day #1. DISCHARGE MEDICATIONS: Levaquin 500 mg p.o. every day x 10 days, KCl 10 mEq every day, Dulcolax 5 or 10 p.o. p.r.n. for constipation, Tylenol 650 q. 4 p.r.n. for pain, atenolol 25 every day, benztropine 0.25 every day, diazepam 2.5 per rectum p.r.n. for anxiety, Vimpat 100 mg b.i.d., Claritin 10 every day, multivitamins and minerals, Protonix 40 every day, MiraLax 17 grams every day, Fleet enema every day p.r.n. for severe constipation. DISPOSITION: The patient was [facility] to the [facility]. CONDITION ON DISCHARGE: Stable. JOB# [id number] MTDD
== END 2017-11-08 13:36 | disposition home or self-care (01) | DRG 871 ==
LOC: ER 07:45 → MSI 13:29
PROVIDERS: ADMIT Internal Medicine; ATTEND Internal Medicine
DX: A41.9 Sepsis, unspecified organism (principal); J18.9 Pneumonia, unspecified organism; G82.50 Quadriplegia, unspecified; K56.7 Ileus, unspecified; N39.0 Urinary tract infection, site not specified; N13.30 Unspecified hydronephrosis; J98.11 Atelectasis; K59.09 Other constipation; K52.9 Noninfective gastroenteritis and colitis, unspecified; E86.0 Dehydration; R31.9 Hematuria, unspecified; F03.90 Unspecified dementia, unspecified severity, without behavioral disturbance, psychotic disturbance, mood disturbance, and anxiety; E87.6 Hypokalemia; B95.1 Streptococcus, group B, as the cause of diseases classified elsewhere; Z16.24 Resistance to multiple antibiotics; Z82.49 Family history of ischemic heart disease and other diseases of the circulatory system
CPT/HCPCS: 36415-UA; 71045-TC; 74000-TC; 80048-TC; 80053-TC; 80061-TC; 81001-TC; 82150-TC; 82550-TC; 83036-90; 83605; 83690-TC; 83735-TC; 83880-TC; 84484-TC; 85007-TC; 85025-TC; 85027-TC; 85610-TC; 87086-90; 93005; 94640; 94760; J0696; J2060; J3475; J3480; J7030; Z7610